=== PATIENT | female | born 1990 | race African-American/Black ===

== ENCOUNTER 2017-07-19 20:39 | Outpatient (CLI) | payer OTHER ==
[~2017-07-19] VITALS: Ht 162.6 cm; Wt 70.0 kg
[2017-07-19 21:00] VITALS: BP 109/74; PULSE 109; TEMP 97.6
[2017-07-19] MEDS ORDERED: PRENATAL 191 CTB PO (21:03)
[2017-07-19 21:04] VITALS: BP 109/74; PULSE 109; TEMP 97.6
== END 2017-07-19 22:20 | disposition home or self-care (01) ==
LOC: LDRO 20:39
DX: Z34.03 Encounter for supervision of normal first pregnancy, third trimester (principal); Z3A.36 36 weeks gestation of pregnancy

== ENCOUNTER 2017-08-01 01:04 | Inpatient (IN) | payer OTHER ==
[~2017-08-01] VITALS: Ht 162.6 cm; Wt 72.7 kg
[2017-08-01] VITALS (39 sets, daily range): BP systolic 103–140; BP diastolic 54–92; PULSE 57–103; TEMP 97.2–99
[~2017-08-01 01:04] MED LIST: PRENATAL 191 CTB PO
[2017-08-01 02:46] LABS: BASO % 0.2 % (0.0-2.0); EOS # 0.1 (0.0-0.7); EOS % 0.7 % (0-4.0); GRAN # 5.7 (1.4-6.5); GRAN % 68.8 % (42.2-75.2); LYMPH # 1.3 (1.2-3.4); LYMPH % 15.9 % (20.0-51.0); MEAN CELL VOLUME 89 fl (80.0-100.0); MEAN CORPUSCULAR HGB CONC 33 g/dl (33.0-37.0); MEAN PLATELET VOLUME 13.7 fl (7.4-10.4); MONO # 1.2 (0.1-0.6); PLATELET COUNT 177 K/mm3 (130-400); RED BLOOD COUNT 3.76 M/mm3 (4.10-5.30); REDCELL DISTRIBUTION WIDTH-CV 13.8 % (11.5-14.5)
[2017-08-01 02:47] LABS: HEMATOCRIT 33.6 % (37.0-47.0); HEMOGLOBIN 11.1 g/dl (12.5-16.0); MEAN CORPUSCULAR HEMOGLOBIN 30 pg (27.0-31.0)
[2017-08-02 04:45] VITALS: BP 114/78; PULSE 76; TEMP 98.6
[2017-08-02 08:45] VITALS: BP 110/53; PULSE 74; TEMP 97.8
[2017-08-02 16:58] VITALS: BP 114/61; PULSE 81; TEMP 98.6
[2017-08-02 20:40] VITALS: BP 103/71; PULSE 66; TEMP 98.4
[2017-08-03 08:45] VITALS: BP 112/68; PULSE 71; TEMP 97.8
[2017-08-03] MEDS ORDERED: IBU600 MG PO (09:57)
== END 2017-08-03 13:40 | disposition home or self-care (01) | DRG 775 ==
LOC: LDRO 01:04 → OB 02:00 → LDR 02:00 → OB 13:30
PROVIDERS: Obstetrics & Gynecology
PROC: 10E0XZZ Delivery of Products of Conception, External Approach (ICD-10-PCS; principal; 2017-08-01)
PROC: 0KQM0ZZ Repair Perineum Muscle, Open Approach (ICD-10-PCS; 2017-08-01)
PROC: 3E033VJ Introduction of Other Hormone into Peripheral Vein, Percutaneous Approach (ICD-10-PCS; 2017-08-01)
DX: O42.02 Full-term premature rupture of membranes, onset of labor within 24 hours of rupture (principal); O70.1 Second degree perineal laceration during delivery; Z3A.37 37 weeks gestation of pregnancy; Z37.0 Single live birth
CPT/HCPCS: J2590; J7120

== ENCOUNTER → 2017-08-11 | Outpatient (CLI) | payer OTHER ==
[~2017-08-11] MED LIST changes: +IBU600 MG PO
== END ==
LOC: MC.RAD 12:12
DX: O91.23 Nonpurulent mastitis associated with lactation (principal)

== ENCOUNTER 2020-02-23 13:44 | Outpatient (CLI) | payer BC ==
[~2020-02-23] VITALS: Ht 162.6 cm; Wt 71.8 kg
[2020-02-23 13:15] VITALS: BP 102/63; PULSE 111; TEMP 98.6
--- NOTE | 2020-02-23 13:25 | NUR ---
PATIENT HERE FOR LABOR CHECK. PATIENT DENIES BLEEDING. PATIENT STATES SHE HAS BEEN LEAKING SINCE 1100 AND HAVING CONTRACTIONS OFF AND ON. PATIENT CHANGED INTO GOWN, ON EFM, SVE PREFORMED- NEGATIVE AMNITRACE, SAME CHECK FROM OFFICE A FEW DAYS AGO. PATIENT HERE WITH
[~2020-02-23 13:44] MED LIST changes: +PROFERRIN ES12 MG PO
[2020-02-23 14:00] VITALS: BP 102/63; PULSE 105; TEMP 98.6
[2020-02-23 14:30] VITALS: BP 91/55; PULSE 91
[2020-02-23 15:00] VITALS: BP 119/66; PULSE 100
== END 2020-02-23 15:00 ==
LOC: LDRO 13:44
DX: Z34.93 Encounter for supervision of normal pregnancy, unspecified, third trimester (principal); Z3A.38 38 weeks gestation of pregnancy

== ENCOUNTER 2020-02-23 16:30 | Outpatient (CLI) | payer BC ==
[~2020-02-23] VITALS: Ht 162.6 cm; Wt 71.8 kg
[2020-02-23 17:00] VITALS: BP 131/70; PULSE 94; TEMP 97.9
[2020-02-23 17:30] VITALS: BP 120/73; PULSE 100
[2020-02-23 17:50] VITALS: BP 115/70; PULSE 104
== END 2020-02-23 17:55 | disposition home or self-care (01) ==
LOC: LDRO 16:30
DX: O62.9 Abnormality of forces of labor, unspecified (principal); Z3A.38 38 weeks gestation of pregnancy

== ENCOUNTER 2020-03-01 04:59 | Inpatient (IN) | payer BC ==
[2020-03-01] VITALS (33 sets, daily range): BP systolic 83–140; BP diastolic 45–76; PULSE 67–88; TEMP 97.3–98.5
[~2020-03-01] VITALS: Ht 162.6 cm; Wt 71.4 kg
--- NOTE | 2020-03-01 05:00 | NUR ---
Pt arrived on unit via wheelchair escorted by staff and . Pt reports contractions every 2-3 minutes since 2am, denies any leaking of fluid and reports normal movement. EFM and toco monitors started. SVE by this RN . Vital signs WNL. Spoke with Dr. Sullivan. FHR tracing, SVE and ctx pattern reviewed. Orders for labor admission received. Plan of care reviewed with pt and at the bedside. Both verbalized an understanding, agreed with the plan and state no questions or concerns at this time.
[2020-03-01 06:02] LABS: BASO % 0.2 % (0.0-2.0); EOS # 0.1 (0.0-0.7); EOS % 0.6 % (0-4.0); GRAN # 9.1 (1.4-6.5); GRAN % 70.7 % (42.2-75.2); HEMATOCRIT 37.8 % (37.0-47.0); HEMOGLOBIN 12.4 g/dl (12.5-16.0); LYMPH # 2.6 (1.2-3.4); LYMPH % 19.9 % (20.0-51.0); MEAN CELL VOLUME 91 fl (80.0-100.0); MEAN CORPUSCULAR HEMOGLOBIN 30 pg (27.0-31.0); MEAN CORPUSCULAR HGB CONC 33 g/dl (33.0-37.0); MEAN PLATELET VOLUME 12.5 fl (7.4-10.4); MONO % 8.1 % (1.7-9.3); PLATELET COUNT 189 K/mm3 (130-400); RED BLOOD COUNT 4.16 M/mm3 (4.10-5.30); REDCELL DISTRIBUTION WIDTH-CV 15.6 % (11.5-14.5)
--- NOTE | 2020-03-01 07:30 | NUR ---
0710- SVE by this RN /-2, intact. Pt up to birthing ball. 0720- Dr Serrano at nurses station, covering for Dr Pena. See physician notification. 0734- Dr Serrano at bedside. Discusses plan of care. Questions answered. SVE by with AROM, clear, odorless fluid noted. Pt tolerated well. Pt encouraged to remain in bed to remain in bed at this time for close monitoring. Call light within reach.
--- NOTE | 2020-03-01 09:30 | NUR ---
0915- Dr Pena at bedside. Discusses plan of care. Pt supine for SVE by MD. 0920- FHR deceleration down to approx. 60bpm, lasting about 2mins. Pt reposiitoned to RL and FHR slowly returned to baseline. MD remains at bedside. 0962- Dr Pena out of room.
--- NOTE | 2020-03-01 11:55 | NUR ---
1134- Pt instucted by this RN to push with UC. FHR decel noted down to 95 bpm. Pt repositioned to LL, Pitocin off. O2 on at 10L via mask, decel continues. 1139- Pt repositioned to RL. 1141- Dr Pena at bedside, evaluates strip. Pt and room prepped for delivery. Mari, Nursery RN at bedside. 1146- Vacuum applied to head, Pt begins pushing with UCs. Jazmin, REGISTERED NURSES updated on Pt status and vacuum assist, will come to bedside. More staff at bedside for standby assist. 4 pop-offs noted. 1155- Vacuum assisted delivery of viable male . Infant tended to by nursery staff. 1200- Spontaneous delivery of placenta. Pitocin restarted at 333ml/hr. Fundus massaged to firm by . 2nd degree laceration repaired by . Pericare compelted. Ice pack and clean chux under Pt. Pt repositioned to high fowlers. Baby skin-2-skin with mom.
--- NOTE | 2020-03-01 15:00 | NUR ---
1500- Pt states she may need to void, unable to lift her left leg up off of the bed. Pt wants to try bedpan before straight cath. Pt encouraged to call out after voiding or if assistance needed.
--- NOTE | 2020-03-01 15:50 | NUR ---
LEFT LEG STILL WEAK. PT REPORTS SHE HAS TO VOID. ASSISTED PATIENT TO THE BATHROOM WITH USE OF WHEELCHAIR. ABLE TO VOID 500CC. PERICARE PERFORMED. [place], UNDERWEAR, AND JOSSY PAD IN PLACE.
[2020-03-02 03:08] VITALS: BP 98/61; PULSE 84; TEMP 98.3
[2020-03-02 07:05] VITALS: BP 103/60; PULSE 90; TEMP 97.6
[2020-03-02] MEDS ORDERED: IBU600 MG PO (09:00)
--- NOTE | 2020-03-02 09:12 | NUR ---
Initial visit; Parents thanked [employer] for offering congratulations and God's blessings for the of their son. [employer] thanked family for choosing [facility].
[2020-03-02 13:30] VITALS: BP 106/62; PULSE 86
[2020-03-02 21:00] VITALS: BP 105/67; PULSE 81; TEMP 98.5
[2020-03-03 06:30] VITALS: BP 99/68; PULSE 84; TEMP 98.2
--- NOTE | 2020-03-03 07:00 | NUR ---
Calls out to do babys lab work. Denies any discomfort or needs at this time.
--- NOTE | 2020-03-03 10:00 | NUR ---
Ambulates in the room. Discharge instructions given, verbalizes understanding.
== END 2020-03-03 11:00 | disposition home or self-care (01) | DRG 807 ==
LOC: LDRO 04:59 → LDR 05:02 → LDRO 05:23 → LDR 05:24 → OB 16:20
PROVIDERS: Obstetrics & Gynecology; ADMIT Obstetrics & Gynecology
PROC: 10907ZC Drainage of Amniotic Fluid, Therapeutic from Products of Conception, Via Natural or Artificial Opening (ICD-10-PCS; principal; 2020-03-01)
PROC: 10D07Z6 Extraction of Products of Conception, Vacuum, Via Natural or Artificial Opening (ICD-10-PCS; 2020-03-01)
PROC: 0KQM0ZZ Repair Perineum Muscle, Open Approach (ICD-10-PCS; 2020-03-01)
DX: O99.02 Anemia complicating childbirth (principal); Z37.0 Single live birth; O99.824 Streptococcus B carrier state complicating childbirth; Z3A.39 39 weeks gestation of pregnancy; O70.1 Second degree perineal laceration during delivery
CPT/HCPCS: J2540; J2590; J7120